=== PATIENT | female | born 1965 | race Caucasian/White ===

== ENCOUNTER 2018-04-27 16:26 | Emergency (ER) | payer SELFPAY ==
[~2018-04-27] VITALS: Ht 157.5 cm; Wt 107.0 kg
[2018-04-27 16:29] VITALS: Ht 157.5 cm; Wt 107.0 kg
[2018-04-27 19:47] VITALS: BP 147/95
== END 2018-04-27 19:47 | disposition home or self-care (01) ==
LOC: ED 16:26
DX: R10.30 Lower abdominal pain, unspecified (principal); M54.5 Low back pain; E66.9 Obesity, unspecified; R31.9 Hematuria, unspecified; I10 Essential (primary) hypertension; Z68.41 Body mass index [BMI] 40.0-44.9, adult; Z88.6 Allergy status to analgesic agent; Z88.5 Allergy status to narcotic agent; Z90.49 Acquired absence of other specified parts of digestive tract; Z87.448 Personal history of other diseases of urinary system
CPT/HCPCS: J2270; Q0162

== ENCOUNTER 2018-06-29 14:14 | Inpatient (IN) | payer OTHER ==
[~2018-06-29] VITALS: Ht 154.9 cm; Wt 107.3 kg
[2018-06-29 14:17] VITALS: Ht 154.9 cm; Wt 107.3 kg
[2018-06-29 17:38] LABS: PLATELET COUNT 205 x10^3mcL (130-400)
[2018-06-29 17:39] LABS: RED CELL DISTRIBUTION WIDTH 15.2 % (11.5-14.5)
[2018-06-29 17:46] LABS: CALCIUM 8.6 mg/dL (8.5-10.1); CARBON DIOXIDE 31.1 mmol/L (21-32); CHLORIDE SERUM 100 mmol/L (98-107); CREATININE SERUM 0.9 mg/dL (0.6-1.0); GFR1 > 60 mL/min; POTASSIUM SERUM 3.3 mmol/L (3.5-5.1); SODIUM SERUM 138 mmol/L (136-145)
[2018-06-29 17:50] LABS: ALKALINE PHOSPHATASE 151 U/L (46-116); ALT/SGPT 121 U/L (14-59); AST/SGOT 127 U/L (15-37); BILIRUBIN TOTAL 0.5 mg/dL (0.20-1.00)
[2018-06-29 17:53] LABS: ALBUMIN 3.2 g/dL (3.4-5.0); GLUCOSE SERUM 104 mg/dL (74-106); TOTAL PROTEIN, SERUM 8.9 g/dL (6.4-8.2)
[2018-06-29 21:51] VITALS: BP 134/78
[2018-06-30 05:50] VITALS: BP 141/87
[2018-06-30 06:22] LABS: BASOPHIL % 0.5 % (0-2); PLATELET COUNT 210 x10^3mcL (130-400)
[2018-06-30 07:08] LABS: ALKALINE PHOSPHATASE 136 U/L (46-116); ALT/SGPT 107 U/L (14-59); AST/SGOT 106 U/L (15-37); BILIRUBIN TOTAL 0.8 mg/dL (0.20-1.00); CALCIUM 8.8 mg/dL (8.5-10.1); CARBON DIOXIDE 31.2 mmol/L (21-32); CHLORIDE SERUM 102 mmol/L (98-107); CREATININE SERUM 0.8 mg/dL (0.6-1.0); GFR1 > 60 mL/min; GLUCOSE SERUM 91 mg/dL (74-106); POTASSIUM SERUM 3.7 mmol/L (3.5-5.1); SODIUM SERUM 138 mmol/L (136-145)
[2018-06-30 07:11] LABS: RED CELL DISTRIBUTION WIDTH 15.1 % (11.5-14.5)
[2018-06-30 07:14] LABS: TOTAL PROTEIN, SERUM 8.6 g/dL (6.4-8.2)
[2018-06-30 08:14] VITALS: BP 139/78
[2018-06-30 09:17] LABS: CHOLESTEROL/HDL RATIO 4.4
[2018-06-30 11:52] VITALS: BP 119/84
[2018-06-30 18:31] VITALS: BP 139/91
[2018-06-30 20:48] VITALS: BP 156/95
[2018-07-01 05:36] VITALS: BP 126/75
[2018-07-01 05:42] VITALS: BP 138/86
[2018-07-01 08:14] VITALS: BP 129/81
[2018-07-01 12:53] VITALS: BP 117/82
[2018-07-01 17:19] VITALS: BP 113/67
[2018-07-01 19:54] VITALS: BP 113/67
[2018-07-01] MEDS ORDERED: METOPROLOL TART25 M1 PO (19:56)
[2018-07-01] MEDS ORDERED: BAYER ASPIRIN R81 MG PO (19:57)
[2018-07-01] MEDS ORDERED: NIT0.4 SL (19:57)
[2018-07-01] MEDS ORDERED: AMBIEN5 MG PO (19:57)
[2018-07-01] MEDS ORDERED: MORPHINE SU2 MG/1 ML IV (19:57)
[2018-07-01] MEDS ORDERED: NOVAPLUS L40 MG/0.4 SC (19:57)
[2018-07-01] MEDS ORDERED: ZOF20I IV (19:58)
[2018-07-01] MEDS ORDERED: TYLENOL325 M1 PO (19:58)
== END 2018-07-01 20:55 | disposition short-term general hospital (02) | DRG 198 ==
LOC: ED 14:14 → DU 19:17
PROVIDERS: Emergency Medicine; Internal Medicine; Internal Medicine Pulmonary Disease
DX: I25.110 Atherosclerotic heart disease of native coronary artery with unstable angina pectoris (principal); K74.60 Unspecified cirrhosis of liver; E66.01 Morbid (severe) obesity due to excess calories; Z68.41 Body mass index [BMI] 40.0-44.9, adult; I10 Essential (primary) hypertension; B19.20 Unspecified viral hepatitis C without hepatic coma; E11.9 Type 2 diabetes mellitus without complications; Z88.5 Allergy status to narcotic agent; Z88.8 Allergy status to other drugs, medicaments and biological substances; Z85.038 Personal history of other malignant neoplasm of large intestine; Z90.49 Acquired absence of other specified parts of digestive tract
CPT/HCPCS: 83880; 85378; J1650; J2270; J2405; J3010; J3490; J7030; J7050; Q0092; Q9967

== ENCOUNTER 2018-12-20 18:10 | Emergency (ER) | payer OTHER ==
[~2018-12-20] VITALS: Ht 160 cm; Wt 109.8 kg
[~2018-12-20 18:10] MED LIST: AMBIEN5 MG PO; BAYER ASPIRIN R81 MG PO; METOPROLOL TART25 M1 PO; MORPHINE SU2 MG/1 ML IV; NIT0.4 SL; NOVAPLUS L40 MG/0.4 SC; TYLENOL325 M1 PO; ZOF20I IV
[2018-12-20 18:17] VITALS: Ht 160 cm; Wt 109.8 kg
[2018-12-20 19:32] LABS: BASOPHIL % 0.8 % (0-2); PLATELET COUNT 224 x10^3mcL (130-400)
[2018-12-20 19:33] LABS: RED CELL DISTRIBUTION WIDTH 15.7 % (11.5-14.5)
[2018-12-20 19:38] LABS: CALCIUM 9.2 mg/dL (8.5-10.1); CARBON DIOXIDE 28.8 mmol/L (21-32); CHLORIDE SERUM 104 mmol/L (98-107); CREATININE SERUM 0.7 mg/dL (0.6-1.0); GFR1 > 60 mL/min; GLUCOSE SERUM 100 mg/dL (74-106); POTASSIUM SERUM 3.6 mmol/L (3.5-5.1); SODIUM SERUM 139 mmol/L (136-145)
[2018-12-20 19:43] LABS: ALKALINE PHOSPHATASE 138 U/L (46-116); ALT/SGPT 65 U/L (14-59); AST/SGOT 60 U/L (15-37); TOTAL PROTEIN, SERUM 8.2 g/dL (6.4-8.2)
[2018-12-20 19:45] LABS: ALBUMIN 2.9 g/dL (3.4-5.0)
[2018-12-20 21:01] VITALS: BP 138/83
== END 2018-12-20 21:01 | disposition home or self-care (01) ==
LOC: ED 18:10
PROVIDERS: Emergency Medicine
DX: R10.12 Left upper quadrant pain (principal); R11.0 Nausea; I10 Essential (primary) hypertension; Z86.73 Personal history of transient ischemic attack (TIA), and cerebral infarction without residual deficits; Z87.19 Personal history of other diseases of the digestive system; Z90.89 Acquired absence of other organs; Z90.49 Acquired absence of other specified parts of digestive tract; Z98.890 Other specified postprocedural states; Z85.038 Personal history of other malignant neoplasm of large intestine; Z88.1 Allergy status to other antibiotic agents; Z88.6 Allergy status to analgesic agent
CPT/HCPCS: J0780; J3010; J7030

== ENCOUNTER 2019-02-10 11:31 | Emergency (ER) | payer OTHER ==
[~2019-02-10] VITALS: Ht 157.5 cm; Wt 108.9 kg
[2019-02-10 11:34] VITALS: BP 148/75; Ht 157.5 cm; Wt 108.9 kg
== END 2019-02-10 13:15 | disposition home or self-care (01) ==
LOC: ED 11:31
DX: S96.911A Strain of unspecified muscle and tendon at ankle and foot level, right foot, initial encounter (principal); Z86.73 Personal history of transient ischemic attack (TIA), and cerebral infarction without residual deficits; F17.210 Nicotine dependence, cigarettes, uncomplicated; E66.01 Morbid (severe) obesity due to excess calories; I10 Essential (primary) hypertension; Z90.49 Acquired absence of other specified parts of digestive tract; Z98.890 Other specified postprocedural states; Z68.41 Body mass index [BMI] 40.0-44.9, adult; Z85.038 Personal history of other malignant neoplasm of large intestine; Z87.442 Personal history of urinary calculi; Z88.1 Allergy status to other antibiotic agents; Z88.6 Allergy status to analgesic agent; X50.1XXA Overexertion from prolonged static or awkward postures, initial encounter; Y93.89 Activity, other specified; Y92.89 Other specified places as the place of occurrence of the external cause; Y99.8 Other external cause status
CPT/HCPCS: 99406; Q0092

== ENCOUNTER 2019-04-17 15:55 | Emergency (ER) | payer OTHER ==
[~2019-04-17] VITALS: Ht 160 cm; Wt 110.2 kg
[2019-04-17 16:16] VITALS: Ht 160 cm; Wt 110.2 kg
[2019-04-17 18:08] LABS: BASOPHIL % 0.8 % (0-2); PLATELET COUNT 258 x10^3mcL (130-400)
[2019-04-17 18:21] LABS: CALCIUM 8.3 mg/dL (8.5-10.1); CARBON DIOXIDE 29.8 mmol/L (21-32); CHLORIDE SERUM 101 mmol/L (98-107); CREATININE SERUM 0.8 mg/dL (0.6-1.0); GFR1 > 60 mL/min; GLUCOSE SERUM 116 mg/dL (74-106); SODIUM SERUM 138 mmol/L (136-145)
[2019-04-17 18:26] LABS: ALKALINE PHOSPHATASE 187 U/L (46-116); ALT/SGPT 66 U/L (14-59); AST/SGOT 74 U/L (15-37); BILIRUBIN TOTAL 0.4 mg/dL (0.20-1.00); C REACTIVE PROTEIN 1.6 mg/dL (<=0.9)
[2019-04-17 18:27] LABS: TOTAL PROTEIN, SERUM 9.1 g/dL (6.4-8.2)
[2019-04-17 18:29] LABS: POTASSIUM SERUM 4.2 mmol/L (3.5-5.1)
[2019-04-17 19:11] LABS: ERYTHROCYTE SED RATE 30 mm/hr (0-30)
[2019-04-17 20:04] VITALS: BP 139/92
== END 2019-04-17 20:04 | disposition home or self-care (01) ==
LOC: ED 15:55
PROVIDERS: Emergency Medicine
DX: M70.21 Olecranon bursitis, right elbow (principal); I10 Essential (primary) hypertension; Z87.442 Personal history of urinary calculi; Z88.6 Allergy status to analgesic agent; Z88.1 Allergy status to other antibiotic agents; Y93.89 Activity, other specified
CPT/HCPCS: 36415